=== PATIENT | female | born 1950 | race Caucasian/White ===

== ENCOUNTER 2019-05-05 11:07 | Emergency (ER) | payer OTHER ==
[2019-05-05 11:13] VITALS: BP 147/69; PULSE 66; TEMP 97.7; BMI 29.9
--- NOTE | 2019-05-05 11:25 | PDOC ---
History of Present Illness - General Chief Complaint: Pain Stated Complaint: LEG PAIN/ TROUBLE WALKING Time Seen by Provider: 05/05/19 11:14 - History of Present Illness Initial Comments: 05/05/19 11:20 78-year-old female without comorbidities presents for evaluation of 2 days of atraumatic left leg discomfort without systemic symptoms. Past History - Past Medical History Allergies/Adverse Reactions: Allergies Allergy/AdvReac Type Severity Reaction Status Date / Time No Known Allergies Allergy Verified 05/05/19 11:13 Home Medications: Ambulatory Orders NK [No Known Home Medication] 05/05/19 COPD: No - Suicide/Smoking/Psychosocial Hx Smoking History: Never smoked Information on smoking cessation initiated: No Hx Alcohol Use: No Drug/Substance Use Hx: No Review of Systems - Review of Systems Constitutional: No: Fever Musculoskeletal: Yes: See HPI *Physical Exam - Vital Signs Last Vital Signs Temp Pulse Resp BP Pulse Ox 97.7 F 66 17 147/69 98 05/05/19 11:10 05/05/19 11:10 05/05/19 11:10 05/05/19 11:10 05/05/19 11:10 - Physical Exam Comments: 05/05/19 11:20 HEAD: NC/AT EYES: Conjuntiva clear Left leg: Skin color and temperature are normal. Range of motion is full in hip knee and ankle. There is no tenderness throughout the left leg floppy soft and nontender. Negative femoral nerve and SLR tests MS: Full ROM in all joints without edema NEUROLOGIC: No gross sensory or motor deficits, NVID SKIN: Normal color and temperature no lesions or rashes 05/05/19 11:21 Medical Decision Making - Medical Decision Making 05/05/19 11:22 This is nonreproducible left leg pain. Patient states the pain only happens when she walks. She states she's been walking 2-3 miles per day. This is not a picture of it DVT, this is an overuse syndrome medial tibial stress syndrome weight-bear as tolerated with ortho Follow-up *DC/Admit/Observation/Transfer Diagnosis at time of Disposition: Left medial tibial stress syndrome - Discharge Dispostion Disposition: HOME Condition at time of disposition: Stable Decision to Admit order: No - Referrals Referrals: Martir Walton DO [Staff Physician] - - Patient Instructions Printed Discharge Instructions: Jacobs Splint, Medial Tibial Stress Syndrome, DI for Jacobs Splint-Adult Additional Instructions: Weight-bear as tolerated with crutches. Follow-up with orthopedic surgery without fail in 1-2 days for further evaluation and treatment options. Tylenol and Motrin as directed for pain. Return to the emergency room for worsening symptoms. - Post Discharge Activity
== END 2019-05-05 11:58 | disposition home or self-care (01) ==
LOC: JERFT 11:07
DX: M76.812 Anterior tibial syndrome, left leg (principal)
CPT/HCPCS: 99281-25

== ENCOUNTER 2022-06-28 08:52 | Emergency (ER) | payer OTHER ==
[2022-06-28 09:17] VITALS: BMI 28.5
[2022-06-28 10:12] LABS: EPI CELLS 10 /uL (0-25.1); HYALINE CASTS 0 /uL (0-3.1); URINE APPEARANCE CLEAR; URINE BACTERIA 51 /uL (0-1359); URINE BILIRUBIN NEGATIVE (NEGATIVE); URINE COLOR YELLOW; URINE GLUCOSE (UA) NEGATIVE (NEGATIVE); URINE KETONE NEGATIVE (NEGATIVE); URINE LEUK ESTERASE 1+ (NEGATIVE); URINE NITRITE NEGATIVE (NEGATIVE); URINE PROTEIN NEGATIVE (NEGATIVE); URINE RBC 6 /uL (0-23.9); URINE UROBILINOGEN 0.2 mg/dL (0.2-1.0); URINE WBC 15 /uL (0-25.8)
[2022-06-28 12:40] LABS: BASO % 0.9 % (0-2.0); EOS % 1.2 % (0-4.5); HEMATOCRIT 37.6 % (32.4-45.2); HEMOGLOBIN 12.4 GM/dL (10.7-15.3); LYMPH % 31.3 % (8-40); MCH 28.3 pg (25.7-33.7); MCHC 33.1 g/dl (32.0-36.0); MEAN CELL VOLUME 85.4 fl (80-96); MONO % 9.5 % (3.8-10.2); NEUT % 57.1 % (42.8-82.8); PLATELET COUNT 203 10^3/uL (134-434); RDW 16.1 % (11.6-15.6); WHITE BLOOD COUNT 6.2 K/mm3 (4.0-10.0)
[2022-06-28 13:03] LABS: ALBUMIN 3.6 g/dl (3.4-5.0); BLOOD UREA NITROGEN 16.4 mg/dL (7-18)
[2022-06-28 13:07] LABS: CREATININE 0.6 mg/dL (0.55-1.3)
[2022-06-28 13:08] LABS: BILIRUBIN,TOTAL 0.3 mg/dL (0.2-1); TOT PROT 6.9 g/dl (6.4-8.2)
[2022-06-28 13:34] VITALS: BP 120/65; PULSE 68; RESP 18; TEMP 97.9
== END 2022-06-28 13:40 | disposition home or self-care (01) ==
LOC: JER 08:52
DX: R31.9 Hematuria, unspecified (principal)
CPT/HCPCS: 36415; 80053; 81003; 85025; 87086; 99283-25

== ENCOUNTER 2023-02-06 10:03 | Emergency (ER) | payer OTHER ==
[2023-02-06 10:09] VITALS: BP 156/71; PULSE 51; RESP 17; TEMP 97.3; BMI 29.5
== END 2023-02-06 13:22 | disposition home or self-care (01) ==
LOC: JERFT 10:03
DX: M54.2 Cervicalgia (principal)
CPT/HCPCS: 72125-TC; 99284-25

== ENCOUNTER 2024-02-10 09:30 | Emergency (ER) | payer OTHER ==
[2024-02-10 09:40] VITALS: BP 127/74; PULSE 59; RESP 18; TEMP 98.1; BMI 29.8
[2024-02-10] MEDS ORDERED: LIDOCAINE 4% PATCH TP ONE (10:09)
[2024-02-10] MEDS ORDERED: ACETAMINOPHEN 325 MG TABLET (FP) ONE (10:10)
[2024-02-10] MEDS ORDERED: KETOROLAC TROMETHAMINE 15 MG/ML VIAL ONE (10:10)
[2024-02-10] MEDS: KETOROLAC TROMETHAMINE 15 MG/ML VIAL IM ONE (10:14)
[2024-02-10] MEDS: LIDOCAINE 4% PATCH TP ONE (10:14)
[2024-02-10] MEDS: ACETAMINOPHEN 500 MG TABLET (FP) PO ONE (10:14)
[2024-02-10] MEDS ORDERED: LIDOCAINE PATCH REMOVAL MC SCH (22:00)
== END 2024-02-10 11:40 | disposition home or self-care (01) ==
LOC: JERFT 09:30
PROC: 3E0233Z Introduction of Anti-inflammatory into Muscle, Percutaneous Approach (ICD-10-PCS; principal; 2024-02-10)
DX: G89.29 Other chronic pain (principal); M54.2 Cervicalgia; M25.511 Pain in right shoulder
CPT/HCPCS: 99284-25

== ENCOUNTER 2024-04-09 04:13 | Day surgery (SDC) | payer OTHER ==
[2024-04-01 10:16] VITALS: BMI 27.4
[2024-04-09] MEDS ORDERED: LIDOCAINE HCL/PF 1% SDV 5ML VIAL ONE (07:24)
[2024-04-09] MEDS ORDERED: BUPIVACAINE HCL/PF 0.5% (5MG/ML) 10 ML VIAL ONE (07:24)
[2024-04-09 09:17] VITALS: RESP 20; TEMP 97.8
[2024-04-09] MEDS ORDERED: ACETAMINOPHEN 500 MG TABLET (FP) PO PRN (09:57)
[2024-04-09] MEDS: BUPIVACAINE HCL/PF 0.5% (5MG/ML) 10 ML VIAL IJ ONE ×3 (10:46)
[2024-04-09 11:46] VITALS: BP 118/76; PULSE 67
== END 2024-04-09 11:15 | disposition home or self-care (01) ==
LOC: JASU-SURG 04:13
PROVIDERS: ATTEND Pain Medicine Pain Medicine
PROC: 3E0T33Z Introduction of Anti-inflammatory into Peripheral Nerves and Plexi, Percutaneous Approach (ICD-10-PCS; 2024-04-09)
PROC: 3E0T3BZ Introduction of Anesthetic Agent into Peripheral Nerves and Plexi, Percutaneous Approach (ICD-10-PCS; principal; 2024-04-09 10:45)
DX: M47.812 Spondylosis without myelopathy or radiculopathy, cervical region (principal)
CPT/HCPCS: 76000-TC-FY

== ENCOUNTER 2024-05-14 04:21 | Day surgery (SDC) | payer OTHER ==
[2024-05-12 13:07] VITALS: BMI 27.4
[2024-05-14] MEDS: LIDOCAINE HCL 1%, 10 MG/ML (50 mL VIAL) INF ONE
[2024-05-14] MEDS: IOHEXOL 180 MG/1 ML ML IT ONE
[2024-05-14] MEDS: DEXAMETHASONE SOD PHOSPHATE 10 MG/1 ML VIAL IVPUSH ONE
[2024-05-14] MEDS ORDERED: ACETAMINOPHEN 500 MG TABLET (FP) PO PRN (08:54)
[2024-05-14 10:19] VITALS: RESP 18
[2024-05-14] MEDS: LIDOCAINE HCL 1% PRESERVATIVE FREE - 30ML VIAL IJ ONE (12:51)
[2024-05-14] MEDS: BUPIVACAINE HCL/PF 0.5% (5MG/ML) 10 ML VIAL IJ ONE (12:51)
[2024-05-14 14:32] VITALS: BP 130/56; PULSE 53; TEMP 97.8
== END 2024-05-14 13:24 | disposition home or self-care (01) ==
LOC: JASU-SURG 04:21
PROVIDERS: ATTEND Pain Medicine Pain Medicine
PROC: 3E0T33Z Introduction of Anti-inflammatory into Peripheral Nerves and Plexi, Percutaneous Approach (ICD-10-PCS; 2024-05-14)
PROC: 3E0T3BZ Introduction of Anesthetic Agent into Peripheral Nerves and Plexi, Percutaneous Approach (ICD-10-PCS; principal; 2024-05-14 12:00)
DX: M47.812 Spondylosis without myelopathy or radiculopathy, cervical region (principal)
CPT/HCPCS: 76000-TC-FY; J1100